=== PATIENT | female | born 1990 | race Two or more races ===

== ENCOUNTER → 2020-01-04 | Outpatient (CLI) | payer OTHER | END | disposition home or self-care (01) | LOC: PRENATAL 14:43 | PROVIDERS: ATTEND Obstetrics & Gynecology Maternal & Fetal Medicine | DX: Z36.89 Encounter for other specified antenatal screening (principal); O36.80X1 Pregnancy with inconclusive fetal viability, fetus 1; Z3A.13 13 weeks gestation of pregnancy ==

== ENCOUNTER → 2020-02-15 | Outpatient (CLI) | payer OTHER | END | disposition home or self-care (01) | LOC: PRENATAL 13:58 | PROVIDERS: ATTEND Obstetrics & Gynecology Maternal & Fetal Medicine | DX: O35.0XX1 Maternal care for (suspected) central nervous system malformation in fetus, fetus 1 (principal); O35.3XX1 Maternal care for (suspected) damage to fetus from viral disease in mother, fetus 1; O98.512 Other viral diseases complicating pregnancy, second trimester; Z36.89 Encounter for other specified antenatal screening; Z3A.19 19 weeks gestation of pregnancy ==

== ENCOUNTER 2020-06-24 15:00 | Inpatient (IN) | payer OTHER ==
[~2020-06-24] VITALS: Ht 160 cm; Wt 69.9 kg
[2020-07-16] MEDS ORDERED: FAMOTIDINE20 MG (15:48)
[2020-07-16] MEDS ORDERED: HYDROCORT-PRAMO30 G1 (15:48)
[2020-07-16] MEDS ORDERED: PANTOPRAZOLE SO40 MG (15:48)
[2020-07-16] MEDS ORDERED: ATABEX OB TABL1 EACH (15:48)
[2020-07-16] MEDS ORDERED: ANUSOL-HC25 MG (15:49)
== END 2020-07-18 13:49 | disposition home or self-care (01) | DRG 807 ==
LOC: LDR 07-08 15:00 → OB/GYN 07-16 17:33
PROVIDERS: ADMIT Obstetrics & Gynecology; ATTEND Obstetrics & Gynecology
PROC: 3E0P7VZ Introduction of Hormone into Female Reproductive, Via Natural or Artificial Opening (ICD-10-PCS; 2020-07-15)
PROC: 4A1HXFZ Monitoring of Products of Conception, Cardiac Rhythm, External Approach (ICD-10-PCS; 2020-07-15)
PROC: 10E0XZZ Delivery of Products of Conception, External Approach (ICD-10-PCS; principal; 2020-07-16)
PROC: 0KQM0ZZ Repair Perineum Muscle, Open Approach (ICD-10-PCS; 2020-07-16)
DX: O70.1 Second degree perineal laceration during delivery (principal); O48.0 Post-term pregnancy; Z37.0 Single live birth; Z3A.41 41 weeks gestation of pregnancy

== ENCOUNTER 2022-08-27 14:00 | Inpatient (IN) | payer OTHER ==
[~2022-08-27] VITALS: Ht 160 cm; Wt 66.7 kg
[~2022-08-27 14:00] MED LIST: ANUSOL-HC25 MG; ATABEX OB TABL1 EACH; FAMOTIDINE20 MG; HYDROCORT-PRAMO30 G1; PANTOPRAZOLE SO40 MG
== END 2022-09-10 12:56 | disposition home or self-care (01) | DRG 807 ==
LOC: LDR 09-06 14:00 → OB/GYN 09-08 05:58 → LDR 09-08 05:58 → OB/GYN 09-08 13:08
PROVIDERS: ADMIT Obstetrics & Gynecology; ATTEND Obstetrics & Gynecology
PROC: 10E0XZZ Delivery of Products of Conception, External Approach (ICD-10-PCS; principal; 2022-09-08)
PROC: 0KQM0ZZ Repair Perineum Muscle, Open Approach (ICD-10-PCS; 2022-09-08)
PROC: 4A1HXCZ Monitoring of Products of Conception, Cardiac Rate, External Approach (ICD-10-PCS; 2022-09-08)
DX: O70.1 Second degree perineal laceration during delivery (principal); Z37.0 Single live birth; Z3A.40 40 weeks gestation of pregnancy; Z20.822 Contact with and (suspected) exposure to COVID-19

== ENCOUNTER 2022-09-03 11:07 | Outpatient (CLI) | payer OTHER | END 2022-09-03 12:22 | disposition home or self-care (01) | LOC: NST 11:07 | PROVIDERS: ATTEND Obstetrics & Gynecology | DX: Z34.83 Encounter for supervision of other normal pregnancy, third trimester (principal) ==